=== PATIENT | male | born 1980 | race Caucasian/White ===

== ENCOUNTER → 2020-05-14 | Outpatient (CLI) | payer OTHER | LOC: M.LAB 16:36 | PROVIDERS: ATTEND Internal Medicine Gastroenterology | DX: Z01.812 Encounter for preprocedural laboratory examination (principal); R11.2 Nausea with vomiting, unspecified; R10.9 Unspecified abdominal pain; K59.00 Constipation, unspecified; R19.7 Diarrhea, unspecified; Z11.59 Encounter for screening for other viral diseases ==